=== PATIENT | female | born 1965 | race Caucasian/White ===

== ENCOUNTER 2021-07-09 05:31 | Inpatient (IN) | payer OTHER ==
[2021-07-09] MEDS ORDERED: Fentanyl 100 MCG/2 ML VIAL SLOW IVP SCH (06:00)
[2021-07-09] MEDS ORDERED: CEFAZOLIN 2 GM in Sodium Chloride 0.9% 100 ML IVPB SCH ×2 (06:15→08:30)
[2021-07-09] MEDS ORDERED: Ondansetron PF 4 MG/2 ML Vial IVP PRN (06:16)
[2021-07-09] MEDS ORDERED: Dextrose 50% Abboject 50 ML SYRINGE SLOW IVP PRN (06:16)
[2021-07-09] MEDS ORDERED: Dextrose 5% in Water 1,000 ML IV PRN (06:16)
[2021-07-09] MEDS ORDERED: hydrALAZINE 20 MG/ML VIAL SLOW IVP PRN (06:16)
[2021-07-09] MEDS ORDERED: traMADol HCl 50 MG TAB PO SCH (06:30)
[2021-07-09] MEDS ORDERED: Ketorolac Tromethamine 30 MG/ML VIAL IVP SCH ×2 (06:30→12:00)
[2021-07-09] MEDS ORDERED: Acetaminophen 500 MG TAB PO SCH (06:30)
[2021-07-09 06:53] LABS: #Lymphocytes 1.2 thou/uL (1.20-3.40); #Monocytes 0.6 thou/uL (0.11-0.59); %Basophils 0.5 % (0.0-1.0); %Eosinophils 0.5 % (0.0-10.0); %Monocytes 6.7 % (0.0-10.0); %Neutrophils 79.4 % (42.0-75.0); Hemoglobin 12.9 g/dL (12.0-16.0); Mean Corpuscular HGB CONC 34.4 g/dL (32.0-36.0); Mean Corpuscular Hemoglobin 33.1 pg (27.0-31.0); Mean Corpuscular Volume 96.4 fL (78.0-98.0); Platelet Count 60 thou/uL (130-400); RBC Distribution Width 12.4 % (11.5-14.5); White Blood Cell (WBC) Count 8.9 thou/uL (4.8-10.8)
[2021-07-09 07:05] LABS: PTT 29.5 sec (22.9-36.1); Prothrombin Time 13.4 sec (12.0-14.7)
[2021-07-09 07:08] LABS: ALT (SGPT) 23 U/L (8-55); AST (SGOT) 20 U/L (5-34); Albumin 3.9 g/dL (3.5-5.0); Alcohol Less than 10 mg/dL (Less than 10); Alkaline Phosphatase 76 U/L (40-110); Anion Gap 11 mmol/L (10-20); BUN (Urea Nitrogen) 13 mg/dL (9.8-20.1); Bilirubin, Total 0.7 mg/dL (0.2-1.2); CK (CPK) 179 U/L (29-168); Calc. Creatinine Clearance 0 mL/min (70-130); Calcium 8.4 mg/dL (7.8-10.44); Carbon Dioxide 19 mmol/L (22-29); Chloride 113 mmol/L (98-107); Globulin 2.5 g/dL (2.4-3.5); Glucose 147 mg/dL (70-105); Magnesium 1.8 mg/dL (1.6-2.6); Phosphorus 2.8 mg/dL (2.3-4.7); Potassium 4.2 mmol/L (3.5-5.1); Protein, Total 6.4 g/dL (6.0-8.3); Sodium 139 mmol/L (136-145)
[2021-07-09] MEDS: Sodium Chloride 0.9% 1,000 ML IV SCH ×3 (08:46→21:00)
[2021-07-09 08:55] LABS: SARS-CoV-2 NAA Rapid Test Not Detected (NotDetected)
[2021-07-09] MEDS: Famotidine 20 MG TAB PO SCH ×2 (08:58→20:46)
[2021-07-09] MEDS: Polyethylene Glycol 3350 17 GM Packet PO SCH (08:58)
[2021-07-09] MEDS: Senokot S 8.6-50 MG TAB PO SCH ×2 (08:59→20:44)
[2021-07-09] MEDS: Nicotine 14 MG PATCH TD SCH (10:57)
[2021-07-09] MEDS ORDERED: Albuterol Sulfate 2.5 mg/3 ml Neb ONE (12:38)
[2021-07-09] MEDS ORDERED: Midazolam HCl 2 mg/2 ml Vial ONE (12:46)
[2021-07-09] MEDS ORDERED: Fentanyl 250 MCG/5 ML VIAL ONE (12:46)
[2021-07-09] MEDS ORDERED: CEFAZOLIN 2 GM VIAL ONE (12:57)
[2021-07-09] MEDS ORDERED: Sodium Chloride 0.9% 100 ML ONE (12:57)
[2021-07-09] MEDS ORDERED: Ondansetron PF 4 MG/2 ML Vial ONE (13:16)
[2021-07-09] MEDS ORDERED: Dexamethasone 20 MG/5 ML VIAL ONE (13:16)
[2021-07-09] MEDS ORDERED: Lidocaine 1% PF 5 ML VIAL ONE (13:16)
[2021-07-09] MEDS ORDERED: PROPOFOL 200 MG/20 ML VIAL ONE (13:16)
[2021-07-09] MEDS ORDERED: Rocuronium Bromide 10 MG/ML (10ML VIAL) ONE (13:16)
[2021-07-09] MEDS ORDERED: Glycopyrrolate 0.2 MG/ML 5 ML SYRINGE ONE (13:16)
[2021-07-09] MEDS ORDERED: ceFAZolin 2 GM/Dextrose 50 ML 2 GM in Premix Bag 1 BAG IVPB SCH (14:00)
[2021-07-09] MEDS ORDERED: HYDROmorphone 2 MG/ML VIAL ONE (14:23)
[2021-07-09] MEDS ORDERED: Meperidine HCl/PF 25 MG/ML VIAL SLOW IVP PRN (14:52)
[2021-07-09] MEDS ORDERED: HYDROmorphone 2 MG/ML VIAL SLOW IVP PRN (14:52)
[2021-07-09] MEDS ORDERED: Promethazine HCl 25 MG/ML VIAL IVPB PRN (14:52)
[2021-07-09] MEDS ORDERED: Promethazine HCl 25 MG/ML VIAL IM PRN (14:52)
[2021-07-09] MEDS: Ketorolac Tromethamine 30 MG/ML VIAL IVP SCH ×2 (15:00→20:45)
[2021-07-09] MEDS: Acetaminophen 500 MG TAB PO SCH ×2 (15:00→20:46)
[2021-07-09] MEDS: traMADol HCl 50 MG TAB PO SCH ×2 (15:00→20:44)
[2021-07-09] MEDS ORDERED: Fentanyl 100 MCG/2 ML VIAL ONE ×2 (15:02→15:34)
[2021-07-09] MEDS ORDERED: cefTRIAXone\\ROCEPHIN 2 GM in Sodium Chloride 0.9% 100 ML IVPB SCH ×2 (15:15→22:00)
[2021-07-09] MEDS: Dexamethasone 4 mg/ml Vial SLOW IVP SCH ×2 (16:15→20:46)
[2021-07-09 17:25] LABS: Amphetamine Not Detected (NotDetected); Barbiturates Screen Not Detected (NotDetected); Benzodiazepine Screen Not Detected (NotDetected); Cocaine Metabolite Screen Not Detected (NotDetected); Methadone Not Detected (NotDetected); Methamphetamine Not Detected (NotDetected); Opiate Screen Not Detected (NotDetected); Oxycodone Screen Not Detected (NotDetected); Phencyclidine (PCP) Not Detected (NotDetected); THC/Cannabinoid Screen Detected (NotDetected); Tricyclic Screen Not Detected (NotDetected)
[2021-07-09 19:08] LABS: HBSAB Concentration Less than 8.00 mIU/mL; HBSAg Index 0.58 S/CO (0-0.99); HIV (1/2) Antibody/Antigen Non-Reactive (NonReactive); HIV 1/2 INDEX 0.08 S/CO (<1.00); Hep B Surf AB Non-Reactive (NonReactive); Hep B Surf Ag Non-Reactive S/CO (NonReactive)
[2021-07-09] MEDS: Cyclobenzaprine 10 MG TAB PO PRN (20:47)
[2021-07-10] MEDS: traMADol HCl 50 MG TAB PO SCH ×4 (03:12→20:48)
[2021-07-10] MEDS: Acetaminophen 500 MG TAB PO SCH ×4 (03:12→20:46)
[2021-07-10] MEDS: Ketorolac Tromethamine 30 MG/ML VIAL IVP SCH ×3 (03:13→14:30)
[2021-07-10] MEDS: Clindamycin/D5W 900 MG in Premix Bag 1 BAG IVPB SCH ×3 (05:42→20:46)
[2021-07-10] MEDS: Dexamethasone 4 mg/ml Vial SLOW IVP SCH ×3 (05:42→20:46)
[2021-07-10 06:36] LABS: Anion Gap 13 mmol/L (10-20); BUN (Urea Nitrogen) 11 mg/dL (9.8-20.1); Calc. Creatinine Clearance 92 mL/min (70-130); Calcium 8.5 mg/dL (7.8-10.44); Carbon Dioxide 15 mmol/L (22-29); Chloride 112 mmol/L (98-107); Glucose 156 mg/dL (70-105); Magnesium 2.1 mg/dL (1.6-2.6); Phosphorus 3.4 mg/dL (2.3-4.7); Sodium 135 mmol/L (136-145)
[2021-07-10] MEDS: Famotidine 20 MG TAB PO SCH ×2 (08:54→20:45)
[2021-07-10] MEDS: Senokot S 8.6-50 MG TAB PO SCH ×2 (08:56→20:46)
[2021-07-10] MEDS: Polyethylene Glycol 3350 17 GM Packet PO SCH (08:58)
[2021-07-10] MEDS: Sodium Chloride 0.9% 1,000 ML IV SCH ×3 (09:03→22:55)
[2021-07-10] MEDS: Fentanyl 100 MCG/2 ML VIAL SLOW IVP PRN (09:28)
[2021-07-10] MEDS: Nicotine 14 MG PATCH TD SCH (10:38)
[2021-07-10 10:49] LABS: #Lymphocytes 0.7 thou/uL (1.20-3.40); #Monocytes 0.4 thou/uL (0.11-0.59); #Neutrophils 7.2 thou/uL (1.40-6.50); %Basophils 0.1 % (0.0-1.0); %Eosinophils 0.2 % (0.0-10.0); %Lymphocytes 8.5 % (21.0-51.0); %Monocytes 4.6 % (0.0-10.0); %Neutrophils 86.7 % (42.0-75.0); Mean Corpuscular HGB CONC 34.2 g/dL (32.0-36.0); Mean Corpuscular Hemoglobin 33.2 pg (27.0-31.0); Mean Corpuscular Volume 97.1 fL (78.0-98.0); Mean Platelet Volume 7.6 fL (7.4-10.4); Platelet Count 49 thou/uL (130-400); RBC Distribution Width 12.6 % (11.5-14.5); White Blood Cell (WBC) Count 8.3 thou/uL (4.8-10.8)
[2021-07-10 11:46] LABS: Syphilis Antibody Nonreactive (Nonreactive); Syphilis Antibody Index 0.07 S/CO (<1.00 Non-Reactive)
[2021-07-10 14:03] VITALS: BMI 21.9
[2021-07-10] MEDS: Cyclobenzaprine 10 MG TAB PO PRN (20:46)
[2021-07-11] MEDS: traMADol HCl 50 MG TAB PO SCH ×4 (02:49→21:28)
[2021-07-11] MEDS: Acetaminophen 500 MG TAB PO SCH ×4 (02:50→21:27)
[2021-07-11] MEDS: Clindamycin/D5W 900 MG in Premix Bag 1 BAG IVPB SCH ×3 (05:57→21:29)
[2021-07-11] MEDS: Dexamethasone 4 mg/ml Vial SLOW IVP SCH ×3 (05:58→21:29)
[2021-07-11 06:41] LABS: #Basophils 0.1 thou/uL (0.0-0.2); #Lymphocytes 0.7 thou/uL (1.20-3.40); #Monocytes 0.3 thou/uL (0.11-0.59); #Neutrophils 3.3 thou/uL (1.40-6.50); %Basophils 1.3 % (0.0-1.0); %Eosinophils 0.2 % (0.0-10.0); %Lymphocytes 16.4 % (21.0-51.0); %Monocytes 5.8 % (0.0-10.0); %Neutrophils 76.2 % (42.0-75.0); Hemoglobin 10.5 g/dL (12.0-16.0); Mean Corpuscular HGB CONC 34.1 g/dL (32.0-36.0); Mean Corpuscular Hemoglobin 33.6 pg (27.0-31.0); Mean Corpuscular Volume 98.5 fL (78.0-98.0); Mean Platelet Volume 7.6 fL (7.4-10.4); Platelet Count 43 thou/uL (130-400); RBC Distribution Width 12.3 % (11.5-14.5); Red Blood Cell (RBC) Count 3.13 mill/uL (4.20-5.40); White Blood Cell (WBC) Count 4.3 thou/uL (4.8-10.8)
[2021-07-11 06:45] LABS: Iron 54 ug/dL (50-170); Iron Binding Capacity, Total 258 mcg/dL (265-497)
[2021-07-11] MEDS: Senokot S 8.6-50 MG TAB PO SCH ×2 (07:48→21:28)
[2021-07-11] MEDS: Famotidine 20 MG TAB PO SCH ×2 (07:51→21:27)
[2021-07-11] MEDS: Polyethylene Glycol 3350 17 GM Packet PO SCH (07:54)
[2021-07-11] MEDS: Fentanyl 100 MCG/2 ML VIAL SLOW IVP PRN (08:33)
[2021-07-11] MEDS ORDERED: Fluconazole 100 MG TAB PO SCH (10:15)
[2021-07-11] MEDS: Nicotine 14 MG PATCH TD SCH (10:49)
[2021-07-11] MEDS: Cyclobenzaprine 10 MG TAB PO PRN (21:30)
[2021-07-12] MEDS: Acetaminophen 500 MG TAB PO SCH ×3 (02:48→14:48)
[2021-07-12] MEDS: traMADol HCl 50 MG TAB PO SCH ×3 (02:49→14:48)
[2021-07-12] MEDS: Clindamycin/D5W 900 MG in Premix Bag 1 BAG IVPB SCH ×2 (05:44→14:47)
[2021-07-12] MEDS: Dexamethasone 4 mg/ml Vial SLOW IVP SCH ×2 (05:44→14:47)
[2021-07-12] MEDS ORDERED: diphenhydrAMINE 50 MG CAP PO SCH (06:15)
[2021-07-12] MEDS: Polyethylene Glycol 3350 17 GM Packet PO SCH (08:45)
[2021-07-12] MEDS: Famotidine 20 MG TAB PO SCH (08:45)
[2021-07-12] MEDS: Senokot S 8.6-50 MG TAB PO SCH (08:45)
[2021-07-12] MEDS: Nicotine 14 MG PATCH TD SCH (08:46)
[2021-07-12] MEDS ORDERED: Saccharomyces boulardii 250 MG CAP PO SCH (09:00)
[2021-07-12 12:49] VITALS: TEMP 97.8
[2021-07-12 17:19] VITALS: BP 133/79
[2021-07-12] MEDS ORDERED: Clindamycin 150 MG CAP PO SCH (22:00)
== END 2021-07-12 18:55 | disposition home or self-care (01) | DRG 580 ==
LOC: ERS 05:31 → EEVIPCON 06:20 → SURG B 06:20 → OBSVTOIN 11:03
PROVIDERS: ADMIT Surgery; ATTEND Surgery
PROC: 0Y9N0ZZ Drainage of Left Foot, Open Approach (ICD-10-PCS; principal; 2021-07-09)
PROC: 0YJJ0ZZ Inspection of Left Lower Leg, Open Approach (ICD-10-PCS; 2021-07-09)
PROC: 3E10X8Z Irrigation of Skin and Mucous Membranes using Irrigating Substance (ICD-10-PCS; 2021-07-09)
DX: S91.052A Open bite, left ankle, initial encounter (principal); S02.85XA Fracture of orbit, unspecified, initial encounter for closed fracture; S02.2XXA Fracture of nasal bones, initial encounter for closed fracture; S91.312A Laceration without foreign body, left foot, initial encounter; J44.9 Chronic obstructive pulmonary disease, unspecified; F17.210 Nicotine dependence, cigarettes, uncomplicated; F12.90 Cannabis use, unspecified, uncomplicated; K73.8 Other chronic hepatitis, not elsewhere classified; F32.A Depression, unspecified; S91.012A Laceration without foreign body, left ankle, initial encounter; K74.60 Unspecified cirrhosis of liver; B18.2 Chronic viral hepatitis C; B37.3 Candidiasis of vulva and vagina; D69.6 Thrombocytopenia, unspecified; Z20.822 Contact with and (suspected) exposure to COVID-19; Z98.51 Tubal ligation status; Y08.89XA Assault by other specified means, initial encounter; Z88.5 Allergy status to narcotic agent; W54.0XXA Bitten by dog, initial encounter; Z79.899 Other long term (current) drug therapy; Z98.890 Other specified postprocedural states; Z90.710 Acquired absence of both cervix and uterus; Z88.6 Allergy status to analgesic agent
CPT/HCPCS: 36415; 70450; 71045; 80048; 80306; 80307; 82550; 83540; 83550; 83735; 84100; 85025; 85610; 85730; 86706; 86780; 86850; 86900; 86901; 87340; 87389; 94640; 96374; 96375; G0378; G0390; J0696; J1100; J1170; J1885; J1956; J2250; J2405; J2704; J3010; J3490; J7050; J7611; J7620; U0002